=== PATIENT | female | born 1985 | race Asian ===

== ENCOUNTER 2018-04-22 09:15 | Day surgery (SDC) | payer OTHER, SELFPAY ==
[2018-04-16 13:14] LABS: Hematocrit 40.3 % (37-47); Hemoglobin 13.3 g/dl (12.0-15.0); Mean Corpuscular Hgb 28.7 pg (27.0-32.0); Mean Corpuscular Volume 86.9 fL (81-99); Mean Platelet Vol. 9.7 fl (6.2-12.0); Platelet Count 339 K/mm3 (150-450); RBC Distribution Width CV 12.7 % (11.6-14.6); RBC Distribution Width SD 39.9 fl (35.1-43.9); Red Blood Count 4.64 M/mm3 (4.2-5.4)
[2018-04-16 13:15] LABS: Scan Indicated on CBC? Y/N NO
[2018-04-16 13:38] LABS: International Normalized Ratio 1.1; Prothrombin Time (Protime)PT. 13.9 SECONDS (11.7-14.9)
[2018-04-16 13:39] LABS: Partial Thromboplast Time 30.5 Seconds (24.1-36.2)
[2018-04-16 13:55] LABS: Pregnancy, Serum, hCG Quali. NEGATIVE Negative (0-9 Nonpreg)
[2018-04-22] VITALS (8 sets, daily range): BP systolic 108–137; BP diastolic 57–79; PULSE 85–90; RESP 16–18; TEMP 36.1–37.2; O2SAT 98–100; BMI 25.7
--- NOTE | 2018-04-22 | IMM_PTH ---
PATIENT: SHAINA STEWARD LOC: [place] U#:[id number] AGE/SX: 33/F ROOM: RE04/22/[address]: Dr. Gordon Ross MD : 1985 BED: DIS: 04/22/2018 SPEC #: [id number] RECD: 04/23/18 12:25 STATUS: ABHAY REQ #: [id number] ESTHELA: 04/22/18 00:[address]: Gordon Ross DEPT: IMMUNOHISTOCHEMISTRY RECD BY: Mouna Berrios ENTERED: 04/23/18 12:26 SP TYPE: IMMUNO OTHR DR: No Primary Care Phys Tissues: A - Uterine cervix, NOS Procedures: p16 (initial) KI-67 (add) PHYSICIAN & INSTITUTION [place] [id number] SPECIMEN INFORMATION: Tissue Source: A ? Anterior lip of cervix Clinical Info: Cervical dysplasia Specimen Number: [id number] CPT code: 35123, 31079 METHODOLOGY: Deparaffinized sections of prefer/formalin-fixed tissue or PAP/DQ stained slides are incubated with monoclonal/polyclonal antibodies/oligonucleotide probes. Localization is made via biotin free immunoperoxidase method. Appropriate controls are performed and reacted as expected. Results on target cell population are indicated in the following table: RESULTS: ANTIBODY / CLONE RESULT Block A3 P16 (E6H4) positive, block staining Ki-67 (30-9) positive, moderate These tests were developed and their performance characteristics determined by [facility]. They may not have been cleared or approved by the [place]. Food and Drug Administration. The FDA has determined that such clearance or approval is not necessary. INTERPRETATION: A. 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 BRANDI:kai 04/24/18
[2018-04-22 09:50] LABS: Internal QC Validated? YES +Cl - CLEAR BKGD; Pregnancy, Urine Negative Negative
--- NOTE | 2018-04-22 10:02 | DCINST_ITS ---
You will use the following diet at home:: Regular Your food should be the consistency of: Regular Discharge Activity: Return to Normal Activity, May Drive, May not drive while taking narcotic pain medications., May Shower Return to work on:: 04/24/18 May resume sexual activity in: 4 weeks Call your doctor if your incision/area has: Sudden Increased Bleeding, Foul Smelling Discharge Call your doctor if you observe: Fever of 101 or Higher, Inability to urinate, Inability to have a bowel movement, Using more than one pad per hour, Shortness of breath, Chest pain, Calf discomfort, Uncontrolled pain Cleanse incision/area with: Soap & Water Allergies/Adverse Reactions: Allergies No Known Allergies Allergy (Verified 04/16/18 08:59) Medications to take at Discharge Levonorgestrel-Ethin Estradiol [Altavera-28 Tablet] 1 tab PO DAILY 04/16/18 Multivitamin [Daily Multiple Vitamin] 1 each PO DAILY 04/16/18 Ibuprofen 600 mg PO 4X/DAY #20 tab 04/22/18 Oxycodone [Oxyir] 5 mg PO Q6H PRN PRN 7 Days #10 tab 04/22/18 The following prescriptions were given: Oxycodone [Oxyir] 5 mg PO Q6H PRN PRN 7 Days #10 tab PRN Reason: Severe Pain (6-10/10) Ibuprofen 600 mg PO 4X/DAY #20 tab Primary Care Physician: Care Physician,No Primary [Primary Care Provider] - Test Results: Test results from this visit will be discussed in further detail at your follow- up appointment, if applicable. Please Follow Up With: Gordon Ross MD When: 2 weeks Proposed Discharge Date: 04/22/18
--- NOTE | 2018-04-22 10:55 | CER_PTH ---
PATIENT: SHAINA STEWARD [place] [facility] [place][id number] AGE/SX: 33/F ROOM: RE04/22/[address]: Dr. Gordon Ross MD : 1985 BED: DIS: 04/22/2018 SPEC #: [id number] RECD: 04/22/18 13:13 STATUS: ABHAY SERA #: [id number] ESTHELA: 04/22/18 10:[address]: Gordon Ross DEPT: SURGICAL PATHOLOGY RECD BY: Dio Casiano ENTERED: 04/22/18 13:14 SP TYPE: CERV OTHR DR: No Primary Care Phys Tissues: A - Uterine cervix, NOS B - Uterine cervix, NOS Procedures: Surgery Specimen Level V HEADER OPERATION: LEEP cone PRE-OP DIAGNOSIS: Cervical dysplasia TISSUE SUBMITTED: A ? Anterior lip of cervix, B ? Posterior lip of cervix MICROSCOPIC DIAGNOSIS A. 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 Dysplastic changes also involve the endocervical glands. Chronic cystic cervicitis. The resection margins are free of dysplastic changes. B. Posterior lip of cervix, LEEP conization: Chronic cystic cervicitis. Negative for dysplasia. SJ:rg 04/23/18 COMMENT A. Immunohistochemistry ([id number]) for surrogate HPV marker (p16) supports the above diagnosis. MICROSCOPIC DESCRIPTION Slides are reviewed. GROSS DESCRIPTION A - Received in fixative is one container labeled with the patient's name and designated anterior lip of cervix. The specimen consists of a piece of moyer, indurated tissue measuring 3.5 x 1.5 cm and up to 0.5 cm in thickness. No mucosal lesion is identified. The nonmucosal surface is inked black. Also present in the container are multiple fragments of blood clot and mucoid tissue measuring in aggregate 1.5 x 1.5 x 0.3 cm. The specimen is serially sectioned and submitted entirely in four cassettes. Cassette 1 contains the fragments of blood clot and mucoid tissue. B - Received in fixative is one container labeled with the patient's name and designated posterior lip of cervix. The specimen consists of a piece of moyer, indurated tissue measuring 2 x 1 cm and up to 0.5 cm in thickness. No mucosal lesion is identified. The nonmucosal surface is inked black. The specimen is serially sectioned and submitted entirely in three cassettes. / SJ:rg 04/22/18 TC:5 CPT: 42239 x2
--- NOTE | 2018-04-22 10:59 | PCM.OPRPT ---
Problem List (1) Cervical dysplasia Status: Chronic Report of Operation Date of Procedure: 04/22/18 Pre-Operative Diagnosis: Moderate to Severe Cervical Dysplasia Post-Operative Diagnosis: Same Surgery/Procedure Performed:: Loop Electrosurgical Excisional Procedure (LEEP) Description of Surgical Findings:: Cervical ectropion present extending 1.5 cm beyond cervical os. childcare center administrator: None Type of Anesthesia:: MAC Anesthesiologist: Florencio Flowers Special Medications: none Specimen's removed: Anterior and posterior lips of exocervix Drains: none Estimated Blood Loss (mL): 5cc Fluids Replaced: 500cc LR Description of Procedure: Joey was taken to the OR with IV running. She was given 2 grams of Cefotetan intravenously for surgical prophylaxis prior to the procedure. SCDs were in place and operational from the preoperative area, through surgery and into recovery. MAC anesthesia was introduced without complication. She was then prepped and draped in the dorsal lithotomy position. A red rubber catheter was used to drain the bladder. A shielded speculum was then placed. The cervix was painted with Lugol's solution to identify the transition zone. Using a medium loop the exocervix was excised. Ball cautery was used to cauterize the margins of the defect and cervical canal. Hemostasis was excellent. She was then reversed from anesthesia and taken to the recovery room in stable condition. Sponge and instrument counts were correct. Grafts/Implants Used: none - Complications none - Admit VTE Documentation VTE Present on Admission: No VTE Mechan Device Prophylaxis: SCD's VTE Pharm Prophylaxis ordered?: No
== END 2018-04-22 12:36 | disposition home or self-care (01) ==
LOC: SDC 09:16 → AC 09:17
PROVIDERS: Anesthesiology; Visit Provider Obstetrics & Gynecology
PROC: 0UBC7ZZ Excision of Cervix, Via Natural or Artificial Opening (ICD-10-PCS; CPT 57522; principal; 2018-04-22 10:40)
DX: D06.7 Carcinoma in situ of other parts of cervix (principal); K21.9 Gastro-esophageal reflux disease without esophagitis
CPT/HCPCS: 57522; 36415; 81025; 84703; 85027; 85610; 85730; 86850; 86900; 88307; 88341; 88342; J7120; J2405

== ENCOUNTER → 2022-10-14 | Outpatient (CLI) | payer OTHER, SELFPAY ==
[2022-10-14 16:54] LABS: Absolute Lymphocyte Count 1.62 X10^3/uL (0.83-4.51); Basophil# 0.04 X10^3/uL; Basophil% 0.6 % (0-1); Eosinophil# 0.08 X10^3/uL; Eosinophils% 1.1 % (0-5); Hematocrit 43.7 % (37-47); Lymphocyte # 1.62 X10^3/ul (0.83-4.51); Lymphocyte % 22.8 % (19-41); Mean Corpuscular Hgb 28.5 pg (27.0-32.0); Mean Corpuscular Volume 88.8 fL (81-99); Mean Platelet Vol. 9.3 fl (6.2-12.0); Monocyte# 0.34 X10^3/uL; Monocyte% 4.8 % (0-10); NRBC Flagged by Analyzer 0 % (0-5); Neutrophil # 5.03 X10^3/uL (2.7-7.7); Neutrophil % 70.6 % (47-70); Platelet Count 403 K/mm3 (150-450); RBC Distribution Width CV 12.2 % (11.6-14.6); RBC Distribution Width SD 39.8 fl (35.1-43.9); Red Blood Count 4.92 M/mm3 (4.2-5.4); White Blood Count 7.1 K/mm3 (4.4-11.0)
[2022-10-14 17:00] LABS: ALB/GLOB Ratio 0.9 RATIO (0.9-2.4); AST(SGOT) 15 U/L (15-37); Alanine Aminotransfer ALT/SGPT 26 U/L (13-56); Albumin, Serum 3.8 g/dL (3.2-5.0); Alkaline Phosphatase 75 U/L (45-117); Anion Gap 7 (5-15); BUN 11 mg/dL (7-18); BUN/Creat Ratio 17.7 RATIO (10-20); Calcium,Total 8.9 mg/dL (8.5-10.1); Chloride 105 mmol/L (98-107); Cholesterol 172 mg/dL (200); Creatinine, Serum 0.62 mg/dL (0.55-1.02); EST Glomerular Filtration Rate 114 mL/min (>60); Est Glom Filt Rate - Afr Amer 139 mL/min (>60); Globulin 4.4 g/dL (2.2-4.2); Glucose 97 mg/dL (74-106); High Density Lipoprotein 58 mg/dL; Potassium 4.1 mmol/L (3.5-5.1); Protein, Total 8.2 g/dL (6.4-8.2); Sodium Level 137 mmol/L (136-145); Triglycerides 85 mg/dL; Very Low Density Lipoprotein 17 mg/dL (5-40)
== END | disposition home or self-care (01) ==
LOC: BIMLAB 15:17
PROVIDERS: PCP Internal Medicine; Referring Provider Internal Medicine; Visit Provider Internal Medicine
DX: Z00.00 Encounter for general adult medical examination without abnormal findings (principal)
CPT/HCPCS: 36415; 80053; 80061; 85025